=== PATIENT | male | born 2000 | race Caucasian/White ===

== ENCOUNTER 2025-03-20 18:56 | Emergency (ER) | payer OTHER, BC ==
[2025-03-20] MEDS ORDERED: Sodium Chloride 0.9% 10 ML Syringe FLUSH PRN (19:36)
[2025-03-20 20:06] LABS: BASOPHILS PERCENT AUTO 0.2 % (0.0-1.0); EOSINOPHILS PERCENT AUTO 0.1 % (0.0-6.0); HEMATOCRIT 46.1 % (42.0-52.0); HEMOGLOBIN 16.2 gm/dl (14.0-18.0); IMMATURE GRAN ABSOLUTE AUTO 0.04 K/mm3 (0.00-0.05); IMMATURE GRAN PERCENT AUTO 0.3 % (0.0-0.4); LYMPHOCYTES ABSOLUTE AUTO 0.8 K/mm3 (1.0-4.8); LYMPHOCYTES PERCENT AUTO 5.3 % (24.0-44.0); MEAN CORPUSCULAR HEMOGLOBIN 31.8 pg (28.0-32.0); MEAN CORPUSCULAR HGB CONC 35.1 g/dl (32.0-36.0); MEAN CORPUSCULAR VOLUME 90.4 fl (83.0-99.0); MEAN PLATELET VOLUME 10.6 fl (9.4-12.4); MONOCYTES PERCENT AUTO 6.1 % (0.0-8.0); PLATELET COUNT,PLT 202 K/mm3 (150-400); WHITE BLOOD CELL COUNT,WBC 15.86 K/mm3 (3.9-11.3)
[2025-03-20] MEDS: ceFAZolin 2 GM Vial IVPUSH ONE (20:25)
[2025-03-20] MEDS: Diphtheria,Pertussis(Acell),Tetanus Vaccine 0.5 ML Syringe IM ONE (20:25)
[2025-03-20] MEDS: Lidocaine 1% 20 ML MDV INJECT ONE (20:26)
[2025-03-20 20:27] LABS: A/G RATIO 1.4 (1-2); ALBUMIN 4.4 g/dl (3.4-5.0); ANION GAP 13.8 (5-15); BILIRUBIN TOTAL 0.6 mg/dL (0.2-1.0); CALCIUM 9.4 mg/dL (8.5-10.1); EST CRCL DRUG DOSING (CG) 130.95 mL/min; POTASSIUM,K 3.8 mEq/L (3.5-5.1); PROTEIN TOTAL,TP 7.6 g/dl (6.4-8.2)
[2025-03-20 22:07] LABS: APPEARANCE,URINE CLEAR (Clear); BILIRUBIN,URINE NEGATIVE (Negative); COLOR,URINE YELLOW (Yellow); GLUCOSE,URINE NEGATIVE (Negative); KETONES,URINE TRACE (Negative); LEUKOCYTE ESTERASE,URINE NEGATIVE (Negative); NITRITE,URINE NEGATIVE (Negative); OCCULT BLOOD,URINE NEGATIVE (Negative); PH,URINE 6.5 (5.0-8.0); PROTEIN,URINE 1+ (Negative); UROBILINOGEN,URINE 0.2 (0.2-1.0)
[2025-03-20 22:15] LABS: BARBITURATE SCREEN,URINE NEGATIVE (CUTOFF=200); BENZODIAZEPINES SCREEN,URINE NEGATIVE (CUTOFF=150); BUPRENORPHINE SCREEN,URINE NEGATIVE (CUTOFF=10); METHADONE SCREEN, URINE NEGATIVE (CUT0FF=200); METHAMPHETAMINES SCREEN, URINE NEGATIVE (CUTOFF=500); OXYCODONE SCREEN,URINE NEGATIVE (CUT0FF=100); THC SCREEN,URINE 20 NG/ML NEGATIVE (CUTOFF=50)
[2025-03-20 22:25] LABS: AMPHETAMINES SCREEN, URINE NEGATIVE (CUTOFF=500)
[2025-03-20 22:33] LABS: BACTERIA,URINE FEW /hpf (FEW); EPITHELIAL CELLS,URINE 0-5 /hpf (0-5); FINE GRANULAR CASTS,URINE 0-5 /lpf (0-5); RBC,URINE 0-5 /hpf (0-5); WBC,URINE 0-5 /hpf (0-5)
[2025-03-20 22:34] LABS: MUCUS,URINE MODERATE /hpf (FEW)
[2025-03-20] MEDS: Bacitracin Oint 15 GM Tube TOP ONE (22:53)
== END 2025-03-20 22:55 | disposition home or self-care (01) ==
LOC: JD.ED 18:56
DX: S51.812A Laceration without foreign body of left forearm, initial encounter (principal); S81.012A Laceration without foreign body, left knee, initial encounter; Z23 Encounter for immunization; Z79.899 Other long term (current) drug therapy; V29.498A Other motorcycle driver injured in collision with other motor vehicles in traffic accident, initial encounter; Y93.89 Activity, other specified
CPT/HCPCS: 12002; 36415; 71045; 72170; 73090; 73552; 73590; 80053; 80306; 80307; 81001; 83690; 85025; 90471; 90715; 96374; 99284; A9270; J0690; 12032; J3490